=== PATIENT | female | born 1985 | race Caucasian/White ===

== ENCOUNTER → 2016-07-10 | Outpatient (CLI) | payer MEDICARE, OTHER ==
[~2016-07-10] MED LIST: AZAT50TA10 PO; BACL10TA PO; BACL20TA PO; ETHI1TAB10 PO; GABA600T2 PO; HYDR-2802 PO; HYDR200T PO; IBUP-1060 PO; IOHEXOL 180 MG/ML 10 ML VIAL. IT ONE; LIDOCAINE 1% Multi-Dose 20 ML VIAL. ID ONE; METF500T4 PO; METH5TAB2 PO; TRAM100T2 PO
--- NOTE | 2016-07-10 16:58 | KCIC ---
PROCEDURE Lumbar myelogram 07/10/2016 HISTORY Low back pain which radiates down the left leg. History of previous lumbar spine surgery. TECHNIQUE After the risks and benefits of the procedure were explained to the patient, written informed consent was obtained. The patient was placed prone on the fluoroscopy table and the lower back was prepped and draped in sterile fashion. 1 percent lidocaine was used as a local anesthetic. Under fluoroscopic guidance, the thecal sac of the lumbar cistern was punctured at the L2 -3 level using a 25 gauge Ting needle. After confirming clear CSF return, 15 cc of Omnipaque 180 were injected into the thecal sac of the lumbar cistern under fluoroscopic guidance. Following this the needle was removed and hemostasis achieved at the puncture site. A sterile Band-Aid was placed on the skin puncture site. AP, bilateral oblique, lateral and standing neutral and flexion and extension lateral digital spot radiographs of the lumbar spine were obtained. Following this the patient was taken to CT where a CT lumbar myelogram was performed. This will be reported separately. The patient was then taken to the recovery area were she was observed for approximately 30 minutes prior to discharge home. The patient tolerated the procedure well and there were no immediate complications. The patient was sent home with an instruction sheet. The total fluoroscopic time for this study was 1 minutes 28 seconds. Nine spot radiographs were obtained. FINDINGS Comparison is made the patient's lumbar myelogram dated 08/01/2013. The patient is status post posterolateral fusion at L4-5 using pedicle screws and stabilizing rods. A spinal stimulator is unchanged in position. There is mild straightening of the normal lumbar lordosis. Degenerative changes consisting of disc space narrowing, vertebral endplate sclerosis and minimal to mild anterior and posterior vertebral body osteophyte formation are seen at the L3-4, L4-5 and L5-S1 levels. A mild to moderate anterior extradural defect is seen upon the contrast column at L3-4. There is no evidence of complete block of contrast at any level involving the lumbar vertebrae. The alignment of the lumbar vertebrae is maintained on the flexion and extension radiographs. IMPRESSION 1. Status post posterolateral fusion at L4-5. 2. Degenerative changes are seen involving the mid and lower lumbar spine as outlined above. Electronically signed by: Juan Nava MD (Jul 10, 2016 16:57:03)
--- NOTE | 2016-07-10 17:13 | KCIC ---
PROCEDURE CT lumbar myelogram 07/10/2016 HISTORY Low back pain which radiates down the left leg. TECHNIQUE This study was performed after the patient's lumbar myelogram. Contiguous, 0.6 millimeter axial sections were obtained through the lumbar spine. 3 millimeter reconstructed sagittal, axial and coronal images were obtained. One or more of the following individualized dose reduction techniques were utilized for this study: 1. Automated exposure control. 2. Adjustment of the mA and/or kV according to patient size. 3. Use of iterative reconstruction technique. FINDINGS Comparison is made to the patient's previous lumbar myelogram dated 08/01/2013. Sagittal and coronal reconstructed images demonstrate minimal S-shaped curvature of the thoracolumbar spine. A spinal stimulator is unchanged in position. The patient is status post posterolateral fusion using pedicle screws and stabilizing rods at L4-5. Degenerative changes consisting disc space narrowing, vertebral endplate sclerosis and minimal to mild anterior and posterior vertebral body osteophyte formation are seen involving the L3-4, L4-5 and L5-S1 disc spaces. The L1-2 disc space is within normal limits. At the L2-3 disc space there is a minimal generalized disc bulge. Degenerative changes are seen involving the facet joints bilaterally. There is mild ligamentum flavum hypertrophy. These findings when combined do not result in significant central spinal canal or neural foraminal stenosis. At the L3-4 disc space the patient is status post right hemilaminotomy. There is a mild to moderate generalized disc bulge. This is eccentric to the left. Superimposed on this disc bulge is a left paracentral/lateral focal disc herniation. This measures 6 millimeters in AP diameter. Degenerative changes are seen involving the facet joints bilaterally. There is mild left-sided ligamentum flavum hypertrophy. These findings when combined result in mild to moderate left-sided central spinal canal stenosis. The disc herniation appears to impinge to some degree upon the left L4 nerve root within the left lateral aspect of the central spinal canal. No neural foraminal stenosis is seen. At the L4-5 disc space the patient is status post laminectomy. Degenerative changes are seen involving the facet joints bilaterally. These findings do not result in significant central spinal canal or neural foraminal stenosis. At the L5-S1 disc space there is a mild to moderate generalized disc bulge. Associated posterior vertebral body osteophyte formation is seen. Degenerative changes are seen involving the facet joints bilaterally. There is mild ligamentum flavum hypertrophy. These findings when combined result in mild central spinal canal stenosis. No neural foraminal stenosis is seen. The disc herniation at L3-4 appears to be new since the previous study. IMPRESSION 1. Status post laminectomy and posterolateral fusion at L4-5. Status post right hemilaminotomy at L3-4. 2. The changes of degenerative disc disease are seen involving the lumbar spine. These findings result in mild to moderate left-sided central spinal canal stenosis at L3-4 and mild central spinal canal stenosis at L5-S1. At the L3-4 disc space a left paracentral/lateral focal disc herniation is seen which is new since the previous examination. This appears to impinge to some degree upon the left L4 nerve root within the left lateral aspect of the central spinal canal. Electronically signed by: Juan Nava MD (Jul 10, 2016 17:11:54)
== END | disposition home or self-care (01) ==
LOC: KCIC 12:39
PROVIDERS: ATTEND Anesthesiology Pain Medicine
DX: M54.16 Radiculopathy, lumbar region (principal)
CPT/HCPCS: 72132; 72265